=== PATIENT | male | born 1980 | race Caucasian/White ===

== ENCOUNTER 2022-07-17 23:16 | Emergency (ER) | payer SELFPAY ==
[~2022-07-17] VITALS: Ht 175.3 cm; Wt 78.0 kg
[2022-07-17 23:19] VITALS: BP 126/67
[2022-07-18] MEDS ORDERED: ONDANSETRON HCL 4MG/2ML INJ IV STA (00:15)
[2022-07-18] MEDS ORDERED: SODIUM CHLORIDE 0.9% 1,000 ML IV ONE (00:15)
[2022-07-18 00:42] LABS: CHLORIDE 100 mEq/L (98-107)
[2022-07-18 00:44] LABS: BASOPHILS % 1.4 % (0.0-2.0); EOSINOPHILS % 3.6 % (0.0-5.0); HEMATOCRIT. 38.1 % (42.0-52.0); HEMOGLOBIN. 12.6 g/dL (14.0-18.0); LYMPHOCYTES % 40.8 % (20.0-50.0); MEAN CORPUSCULAR HEMOGLOBIN 29.4 pg (28.0-32.0); MEAN CORPUSCULAR VOLUME 88.6 fL (80.0-94.0); MEAN PLATELET VOLUME 7.1 fl (7.4-10.4); MONOCYTES % 7.5 % (2.0-8.0); NEUTROPHILS % 46.7 % (40.0-76.0); PLATELET 300 x1000/uL (130-400); RED CELL DISTRIBUTION WIDTH 14.8 % (11.6-14.6)
[2022-07-18 02:14] LABS: ETHANOL BLOOD 348 mg/dL
== END 2022-07-18 08:47 | disposition home or self-care (01) ==
LOC: ER 23:16
DX: T51.91XA Toxic effect of unspecified alcohol, accidental (unintentional), initial encounter (principal); M54.2 Cervicalgia; I10 Essential (primary) hypertension; Y92.89 Other specified places as the place of occurrence of the external cause
CPT/HCPCS: 36415; 70450; 71045; 72125; 80053; 80320; 85025; 96374; 99291; J2405; J7030; G0480

== ENCOUNTER 2023-02-10 22:10 | Emergency (ER) | payer MEDICAID ==
[~2023-02-10] VITALS: Ht 172.7 cm; Wt 70.0 kg
[2023-02-10 22:15] VITALS: TEMP 97.9; O2SAT 98
[2023-02-11 00:30] VITALS: BP 145/103; PULSE 108; RESP 16
[2023-02-11] MEDS ORDERED: KETOROLAC 60MG/2ML VIAL IM ONE (00:30)
[2023-02-11] MEDS ORDERED: LIDOCAINE 5% PATCH TOP SCH (00:30)
[2023-02-11] MEDS ORDERED: HYDROCODONE/ACETAMINOPHEN 5/325MG TABLET PO ONE (00:30)
[2023-02-11] MEDS ORDERED: NAPR-681 MT (01:17)
== END 2023-02-11 01:28 | disposition home or self-care (01) ==
LOC: ER 22:10
DX: M25.561 Pain in right knee (principal); G89.29 Other chronic pain; M54.9 Dorsalgia, unspecified; I10 Essential (primary) hypertension; Z88.0 Allergy status to penicillin
CPT/HCPCS: 99283; 96372; J1885